=== PATIENT | male | born 1980 | race Asian ===

== ENCOUNTER 2021-09-21 22:18 | Emergency (ER) | payer OTHER ==
[~2021-09-21] VITALS: Ht 172.7 cm; Wt 82.0 kg
[2021-09-22] MEDS ORDERED: ACETAMINOPHEN 325MG TABLET PO ONE (00:30)
[2021-09-22] MEDS ORDERED: TETANUS, DIPHTHERIA, PERTUSSIS VAC/PF 0.5ML (>10YR OLD) IM ONE (00:30)
[2021-09-22] MEDS ORDERED: LIDOCAINE HCL/PF 1% 10 MG/ML 5ML VIAL INFIL ONE (03:15)
[2021-09-22] MEDS ORDERED: TOPUD MT (03:48)
[2021-09-22 04:03] VITALS: BP 130/82
== END 2021-09-22 04:04 | disposition home or self-care (01) ==
LOC: ER 22:18
DX: S01.511A Laceration without foreign body of lip, initial encounter (principal); R68.84 Jaw pain; M54.2 Cervicalgia; K08.89 Other specified disorders of teeth and supporting structures; R03.0 Elevated blood-pressure reading, without diagnosis of hypertension; Y08.89XA Assault by other specified means, initial encounter; Y93.89 Activity, other specified; Y92.89 Other specified places as the place of occurrence of the external cause
CPT/HCPCS: 70486; 90471; 90715; 99284; J3490